=== PATIENT | male | born 1960 | race Caucasian/White ===

== ENCOUNTER 2020-10-14 15:48 | Outpatient (REF) | payer MEDICAID, SELFPAY | END 2020-10-14 15:49 | disposition home or self-care (01) | LOC: HO.US 15:48 | PROVIDERS: PCP Nurse Practitioner Primary Care; Visit Provider Nurse Practitioner Primary Care | DX: M72.0 Palmar fascial fibromatosis [Dupuytren] (principal) | CPT/HCPCS: 99202 ==

== ENCOUNTER 2020-11-11 10:55 | Emergency (ER) | payer MEDICAID, SELFPAY ==
[2020-11-11 11:10] VITALS: BP 193/116; PULSE 63; RESP 18; TEMP 37.2; O2SAT 97; BMI 33.5
--- NOTE | 2020-11-11 11:28 | ED_ITS ---
HPI - Extremity Problem General Chief complaint: Extremity Injury, Upper Stated complaint: lt hand pain & swelling Time Seen by Provider: 11/11/20 11:16 Source: patient and family Mode of arrival: ambulatory Limitations: language barrier (Armenian-speaking) History of Present Illness HPI Narrative: With a past medical history of diabetes, hypertension hyperlipidemia presenting to the ED with complaints of pain/redness/swelling to left hand at the MCP of the index finger since Monday worse today after he sustained a laceration from a kitchen knife. He he did not seek any treatment at that time. He reports he is not up-to-date on tetanus. He denies any other injuries complaints or concerns at this time. He denies any fevers or chills. Related Data Previous Rx's Medication Instructions Recorded acetaminophen [Tylenol Extra 1,000 mg PO QID PRN #14 tab 11/11/20 Strength] cephalexin 500 mg PO BID 10 Days #20 cap 11/11/20 doxycycline monohydrate 100 mg PO BID 10 Days #20 cap 11/11/20 naproxen 500 mg PO BID PRN #10 tab 11/11/20 oxycodone 5 mg PO BID PRN #10 tab 11/11/20 Allergies Allergy/AdvReac Type Severity Reaction Status Date / Time No Known Allergies Allergy Verified 10/14/20 08:35 [No Known Allergies*] Review of Systems Review of Systems: Constitutional : No changes in activity, No lethargy, No recent prior head injury, No agitation, No increased fussiness ENT/Mouth : No Ear Pain, No Nasal discharge/drainage Eyes: No Eye Pain, No Swelling, No Redness, No Foreign Body, No Vision Changes Cardiovascular : No Chest Pain, No SOB Respiratory : No Cough Gastrointestinal : No Nausea, No Vomiting, No abdominal Pain Genitourinary : No Dysuria, No Urinary Frequency, No Urinary Incontinence, No Urgency, No Flank Pain Musculoskeletal : Positive joint pain, No neck stiffness, No back pain/injury Skin : Positive surrounding erythema, positive well-healing lacerations, No rashes Neuro : No unsteady gait, No Paresthesias, No Loss of Consciousness, No altered mental status, No Headache Yes all other systems are reviewed and are negative [facility] Past Medical History Attestation statement: The following information was validated with the patient. Medical History Diabetes High blood pressure High cholesterol Social History Social History Advance Directives: No Advance Directives Information Provided: No Current occupational status: employed Current occupation: [employer]/rt handed Physical Exam Vital Signs: Vital Signs: Last Vital Signs Temp 98.9 F 11/11/20 11:10 Pulse 63 11/11/20 11:10 Resp 18 11/11/20 11:10 BP 193/116 H 11/11/20 11:10 Pulse Ox 97 11/11/20 11:10 Body Mass Index 33.5 vital signs have been reviewed as normal and appeared to be correct. Blood pressure hypertensive at 193/116. Heart rate normal. Respiration rate normal. Temperature normal. Oxygen saturation normal. Appearance: Alert. Oriented X3. No acute distress. Head: Normal external exam. Normocephalic. Atraumatic. Eyes: PERRLA. EOMI. Conjunctiva and sclera normal. Eyelids normal. ENT: EAC normal. TM's Normal. Pharynx normal. Uvula midline. Moist mucous membranes. Neck: Normal inspection. Neck supple. FROM. No adenopathy. Thyroid Normal. No meningeal signs. No neck mass noted. CVS: Normal heart rate and rhythm. Heart sound normal. Pulses normal throughout. No murmurs/rales/gallops. Respiratory: No respiratory distress. Painless inspiration. Breath sounds normal. No wheezes/rales/rhonchi noted. Chest nontender. No accessory muscle usage noted or decreased air movement noted. Back: Full range of motion noted. Skin: Skin warm and dry. Normal skin color. Normal skin turgor. No rashes/lesions/lacerations noted. Extremities: To left hand at the MCP of the index patient has a well-healing laceration with mild surrounding erythema and soft tissue swelling and tenderness to palpation and warm to touch. Although patient has full range of motion of all finger/wrist joint. Not consistent with tenosynovitis. Not consistent with abscess. No streaking is noted. No purulent drainage is noted. Otherwise all other Extremities exhibit normal range of motion and nontender. Neuro: Oriented X 3. No motor deficit. No sensory deficit. Reflexes normal. Normal steady gait. No focal neuro deficits noted. Vascular: + radial pulses/+ 2 distal pedal pulses/+2 dorsalis pedis b/l. Normal cap refill. No cyanosis noted to upper extremity nails and lower extremity toes nails. Course Course Course Narrative: 60-year-old male presenting to the ED with cellulitis to left hand at the [facility] that started after he sustained a laceration from a kitchen kni fe on Monday. Not up-to-date on tetanus. On exam patient has cellulitic infection. Not consistent with abscess/streaking or tenosynovitis. Will DC home with antibiotics and update the patient's tetanus at this time instructions to return if any new or worsening symptoms to follow up with primary care provider. Patient understands agrees with this plan. MDM - Extremity (Nontraumatic) Medical Records Attestation: I reviewed the patient's medical records. Discharge Plan Discharge Clinical Impression: Cellulitis Patient Disposition: Home, Self-Care Instructions: Cellulitis (ED) Prescriptions: New acetaminophen [Tylenol Extra Strength] 500 mg tablet 1,000 mg PO QID PRN (Reason: fever or pain) Qty: 14 RF: 0 doxycycline monohydrate 100 mg capsule 100 mg PO BID 10 Days Qty: 20 RF: 0 cephalexin 500 mg capsule 500 mg PO BID 10 Days Qty: 20 RF: 0 naproxen 500 mg tablet 500 mg PO BID PRN (Reason: pain) Qty: 10 RF: 0 oxycodone 5 mg tablet 5 mg PO BID PRN (Reason: pain) Qty: 10 RF: 0 Referrals: Mariola Osorio [employer]AT[employer] PROFESSOR [Primary Care Provider] - 2 days Print Language: Armenian
[2020-11-11] MEDS: cephALEXin 500 MG CAPSULE PO (11:34)
[2020-11-11] MEDS: Diphth,Pertus(ACell),Tet Adult 0.5 ML SYRINGE IM (11:34)
== END 2020-11-11 11:38 | disposition home or self-care (01) ==
PROVIDERS: Emergency Provider Emergency Medicine; PCP Nurse Practitioner Primary Care
DX: L03.114 Cellulitis of left upper limb (principal); S61.412D Laceration without foreign body of left hand, subsequent encounter; W26.0XXD Contact with knife, subsequent encounter; E11.9 Type 2 diabetes mellitus without complications; I10 Essential (primary) hypertension
CPT/HCPCS: 90471; 90715; 99282; 99284

== ENCOUNTER 2022-04-27 07:44 | Outpatient (REF) | payer MEDICAID, SELFPAY ==
--- NOTE | ~2022-04-27 | XR_ITS ---
EXAMINATION: XR KNEE, RIGHT CLINICAL INFORMATION: Pain COMPARISON: None TECHNIQUE: Four views of the right knee. FINDINGS: Bone alignment is normal. No fracture or dislocation. Increased sclerosis in the intramedullary metaphysis of the distal femur, question representing cartilaginous bone lesion such as an enchondroma versus bone infarct. Normal joint spaces. No joint effusion. XR/XR knee RT 4V IMPRESSION: Question cartilaginous bone lesion versus bone infarct in the distal femoral diaphysis.
== END 2022-04-27 07:45 | disposition home or self-care (01) ==
LOC: HO.XRAY 07:44
PROVIDERS: PCP Nurse Practitioner Primary Care; Visit Provider Emergency Medicine
DX: M25.561 Pain in right knee (principal)
CPT/HCPCS: 73564

== ENCOUNTER 2023-05-09 16:42 | Emergency (ER) | payer OTHER, SELFPAY ==
[2023-05-09 16:56] VITALS: BP 184/102; PULSE 88; RESP 18; TEMP 37.1; O2SAT 96; BMI 33.5
--- NOTE | 2023-05-09 17:00 | ED_ITS ---
HPI - Extremity Injury (Upper) General Chief Complaint: Wound/Laceration Stated Complaint: right middle finger cut Time Seen by Provider: 05/09/23 20:59 Source: patient and RN notes reviewed Mode of arrival: ambulatory Limitations: no limitations History of Present Illness HPI narrative: 63-year-old male presents for evaluation of a right middle finger laceration. Patient reports he was trying to clean the dishes. He reached into the sink and cut his finger He believes that he cut it on a knife but is not entirely sure because ?it happened so fast. ? Patient has a history of diabetes He is taking a baby aspirin daily No other complaints or injuries Related Data Previous Rx's Medication Instructions Recorded acetaminophen 500 mg tablet 1,000 mg (2 x 500 mg) PO QID PRN 11/11/20 (Tylenol Extra Strength) fever or pain #14 tabs cephalexin 500 mg capsule 500 mg PO BID 10 days #20 caps 11/11/20 doxycycline monohydrate 100 mg 100 mg PO BID 10 days #20 caps 11/11/20 capsule naproxen 500 mg tablet 500 mg PO BID PRN pain #10 tabs 11/11/20 oxycodone 5 mg tablet 5 mg PO BID PRN pain #10 tabs 11/11/20 Allergies Allergy/AdvReac Type Severity Reaction Status Date / Time No Known Allergies Allergy Verified 05/09/23 16:56 [No Known Allergies*] Review of Systems Constitutional: Constitutional: Denies chills and Denies fever(s) Integumentary/Breasts: Skin/Breast: Reports wounds PMFSH Past Medical History Medical History Diabetes High blood pressure High cholesterol Social History Social History Advance Directives: No Advance Directives Information Provided: No Current occupational status: employed 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 Physical 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 Vital Signs: Vital Signs: Last Vital Signs Temp 98.7 F 05/09/23 16:56 Pulse 88 05/09/23 16:56 Resp 18 05/09/23 16:56 BP 184/102 H 05/09/23 16:56 Pulse Ox 96 05/09/23 16:56 O2 Del Method Room Air 05/09/23 16:56 BMI result Body Mass Index 33.5 Const: General: healthy appearing, comfortable, no acute distress, alert and awake Nutritional Appearance: well nourished Orientation/consciousness: patient oriented x3 HEENT: Head: Yes normocephalic and Yes atraumatic Resp: Effort & Inspection: normal respiratory effort, able to speak in complete sentences and not labored Skin: Other: Patient has a 2 cm, full-thickness laceration to the distal aspect of the right 3rd finger pad. Minimal active bleeding. 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 denies crush injury 1.5cm laceration noted to right distal 3rd finger will need suture repair Full HPI, ROS and PE to be performed by primary ED provider. Medications Administered Discontinued Medications Generic Name Dose Route Start Last Admin Trade Name Freq PRN Reason Stop Dose Admin Lidocaine HCl 5 ml 05/09/23 21:06 05/09/23 21:13 Lidocaine Hcl 1 % Mpf 5 Ml Vial INFILTRATI 05/09/23 21:07 5 ml ONCE ONE Administration Medical Decision Making Medical Decision Making [facility] Narrative: Patient has a small laceration. His tetanus is up-to-date. Was updated in October 2020. The patient's wound will require cleaning and closure, see procedure note. Differential Diagnosis Differential Diagnoses: The differential diagnosis associated with the presentation includes Laceration Skin tear Puncture wound Acute wound Procedures Laceration Laceration 1: Site: hand (Third finger) Side (If applicable): right Size (cm): 2 Description: linear Depth: simple, single layer Local Anesthetic: lidocaine 1% Amount of anesthesia used (mL): 1 Pre-repair: wound explored, irrigated extensively and deep structures intact Skin layer closed with: nylon Size (cm): 5-0 Number of sutures: 4 Technique: simple, interrupted Discharge Plan Discharge Clinical Impression: Laceration of finger of right hand Patient Disposition: Home, Self-Care Instructions: Laceration (ED) Additional Instructions: You had 4 sutures placed to your finger today. Keep the area clean and dry. These can be removed in 10-14 days You may follow-up with your primary doctor if they cannot see you, you may return to the ED to have the sutures removed Prescriptions: No Action acetaminophen [Tylenol Extra Strength] 500 mg tablet 1,000 mg PO QID PRN (Reason: fever or pain) Qty: 14 0RF doxycycline monohydrate 100 mg capsule 100 mg PO BID 10 Days Qty: 20 0RF cephalexin 500 mg capsule 500 mg PO BID 10 Days Qty: 20 0RF naproxen 500 mg tablet 500 mg PO BID PRN (Reason: pain) Qty: 10 0RF oxycodone 5 mg tablet 5 mg PO BID PRN (Reason: pain) Qty: 10 0RF
[2023-05-09] MEDS: Lidocaine HCl 1 % MPF 5 ML VIAL INFILTRATI (21:13)
== END 2023-05-09 21:44 | disposition home or self-care (01) ==
PROVIDERS: Emergency Provider Emergency Medicine; PCP Family Medicine
DX: S61.212A Laceration without foreign body of right middle finger without damage to nail, initial encounter (principal); W25.XXXA Contact with sharp glass, initial encounter; Y93.G1 Activity, food preparation and clean up; Y92.000 Kitchen of unspecified non-institutional (private) residence as the place of occurrence of the external cause; Y99.9 Unspecified external cause status; Z79.899 Other long term (current) drug therapy
CPT/HCPCS: 12001; 99282; 99284

== ENCOUNTER 2023-05-24 09:46 | Outpatient (AMB) | payer MEDICAID, SELFPAY ==
[2023-05-24 09:51] VITALS: BP 140/80; PULSE 64; O2SAT 96; BMI 34.7
--- NOTE | 2023-05-24 09:51 | A.OFFVIS_ITS ---
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 He was diagnosed with DILLAN many years ago and used CPAP. However, he stopped using CPAP, he states that he did not get supplies. Pt is not sure when he had a new CPA. He was a patient of [facility], but his account was locked due to non compliance 14 years ago. Pt thinks that he had a new CPAP about 3 years ago, but not sure. He snores loudly, reports witnessed apnea spells, and gasping arousals. Sleep questionnaire: Have you ever been diagnosed with a sleep disorder? Yes, DILLAN. Have you ever had a sleep study in the past? Yes many years ago. Have you ever been treated for a sleep disorder? Yes, CPAP. Do you take medications for a sleep disorder? Ambien. Do you snore? Yes. Do you wake up gasping at night? Yes. Do you have episodes of apneas? Yes. If yes, are they witnessed? Yes. Do you have episodes of nocturnal chest pain or dyspnea? Yes, Do you have difficulty initiating sleep? Yes. Do you have difficulty maintaining sleep? Yes. Do you wake up tired? No. Do you have headaches upon awakening? No. Do you wake up with dry mouth or throat? Yes. Do you have GERD? Yes. Do you have nocturia? No. Do you have nocturnal leg cramps? No. Do you have symptoms of restless legs? No. Do you act out your dreams? No. Sleep hygiene questionnaire: What is your usual sleep routine? Usual bedtime is at 10-11 pm; Usual wake up time is at 7-8 am . Do you take naps? No. Is your sleep environment cool, dark, and quiet? Yes. Do you exercise? No. Do you take caffeine or other stimulants? Coffee in the morning. Do you use electronics in bed? No. What is your work schedule? 2-10 pm. Hypersomnolence questionnaire: Do you have daytime tiredness or fatigue? Yes. Do you easily fall asleep when inactive? No. Have you ever had episodes of sudden weakness? No. Have you ever had episodes of sudden weakness associated with strong emotions? No. 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 Review of Systems Const All systems reviewed & are unremarkable except as noted in HPI and below Physical Exam Vital Signs: Last Vital Signs Pulse 64 05/24/23 09:51 BP 140/80 H 05/24/23 09:51 Pulse Ox 96 05/24/23 09:51 Oxygen Delivery Method Room Air 05/24/23 09:51 BMI result Body Mass Index 34.7 Const General: cooperative and tired appearing Nutritional Appearance: obese Orientation/consciousness: patient oriented x3 Neck Neck: Yes full ROM and Yes supple Resp Effort & Inspection: normal respiratory effort and able to speak in complete sentences Neuro General: patient oriented x3, gait normal and moves all extremities Cranial nerves: Yes CN's II-XII intact bilaterally Cognition (Neuro): normal cognition Gait exam (Neuro): Normal gait present Motor exam (neuro): 5/5 motor strength present throughout, Pronator motor function not present and no tremor noted Psych Appearance: grossly normal Mental Status: mental status grossly normal Speech and movement: Normal speech and movement present Affect: normal affect Attitude: cooperative Assessment & Plan Assessment & Plan (1) DILLAN (obstructive sleep apnea): Code(s): G47.33 - Obstructive sleep apnea (adult) (pediatric) Plan Advised patient to call his insurance and found out when he had new CPAP and the home care company that give him new CPAP. Pt is advised to undergo home sleep study to assess for sleep apnea. Will f/u with patient after study to discuss results and appropriate treatment options. Pt to call with any worsening concerns or questions. Orders: Orders RT home sleep study Today G47.33 - Obstructive sleep apnea (adult) (pediatric) Coding Level of Care Code New Pt Level 3 (41966) Diagnoses DILLAN (obstructive sleep apnea) G47.33
== END 2023-05-24 10:21 | disposition home or self-care (01) ==
PROVIDERS: PCP Nurse Practitioner Primary Care; Visit Provider Nurse Practitioner Family
DX: G47.33 Obstructive sleep apnea (adult) (pediatric) (principal)
CPT/HCPCS: 99203

== ENCOUNTER → 2023-05-24 09:46 | Outpatient (BNVA) | payer MEDICAID, SELFPAY | PROVIDERS: PCP Nurse Practitioner Primary Care; Visit Provider Nurse Practitioner Family | DX: G47.33 Obstructive sleep apnea (adult) (pediatric) (principal) | CPT/HCPCS: 99212 ==